=== PATIENT | male | born 1965 | race Caucasian/White ===

== ENCOUNTER 2021-04-25 13:53 | Emergency (ER) | payer OTHER ==
[2021-04-25] MEDS ORDERED: MEDROL 4MG DOSEP4 MG PO (17:02)
[2021-04-25] MEDS ORDERED: VENTOLIN HFA IN18 GM INH (17:02)
== END 2021-04-25 17:21 | disposition home or self-care (01) ==
LOC: FER 13:53
DX: U07.1 COVID-19 (principal); J12.82 Pneumonia due to coronavirus disease 2019; Z88.5 Allergy status to narcotic agent
CPT/HCPCS: 99283; J1100